=== PATIENT | male | born 1995 | race African-American/Black ===

== ENCOUNTER 2018-01-31 15:51 | Emergency (ER) | payer SELFPAY ==
[~2018-01-31] VITALS: Ht 172.7 cm; Wt 65.9 kg
[~2018-01-31 15:51] MED LIST: IBU800 M1 PO; NO HOME MEDICATIONS
[2018-01-31 15:54] VITALS: BP 129/79; TEMP 97.9
[2018-01-31] MEDS ORDERED: NORCOELIX PO (16:50)
[2018-01-31] MEDS ORDERED: AMOXICILLIN 50500 MG PO (16:50)
[2018-01-31 18:00] VITALS: PULSE 68
== END 2018-01-31 18:00 | disposition home or self-care (01) ==
LOC: COL.ER 15:51
DX: S02.609B Fracture of mandible, unspecified, initial encounter for open fracture (principal); J45.909 Unspecified asthma, uncomplicated; Z23 Encounter for immunization; F17.210 Nicotine dependence, cigarettes, uncomplicated; Z98.890 Other specified postprocedural states; W22.8XXA Striking against or struck by other objects, initial encounter; Y92.830 Public park as the place of occurrence of the external cause; Y93.67 Activity, basketball